=== PATIENT | female | born 1965 | race Two or more races ===

== ENCOUNTER 2018-04-20 02:55 | Emergency (ER) | payer SELFPAY ==
[~2018-04-20] VITALS: Ht 157.5 cm; Wt 59.0 kg
[2018-04-20] MEDS ORDERED: methylPREDNISolone SOD SUCC 125 MG/2 ML VL ONE (03:09)
[2018-04-20] MEDS ORDERED: TERBUTALINE SULFATE 1 MG/ML 1ML VIAL SC ONE ×2 (03:15→03:17)
[2018-04-20] MEDS ORDERED: ALBUTEROL SULF 2.5 MG/0.5ML(0.5%) NEB SOLN NEB ONE (03:15)
[2018-04-20] MEDS ORDERED: IPRATROPIUM BROM 0.5 MG/2.5ML INH SOL NEB ONE (03:15)
[2018-04-20] MEDS ORDERED: methylPREDNISolone SOD SUCC 125 MG/2 ML VL IV ONE (03:15)
[2018-04-20 03:25] LABS: Basophils # (auto) 0.1 uL; Basophils % (auto) 0.7 % (0.0-2.0); Eosinophils # (auto) 0.3 uL; Eosinophils % (auto) 2.9 % (0.0-7.0); Hematocrit 39.8 % (36.0-46.0); Hemoglobin 12.9 g/dL (12.2-16.2); Lymphocytes # (auto) 2.5 uL; Lymphocytes % (auto) 27.7 % (10.0-50.0); Mean Corpuscular Hgb Conc. 32.5 g/dL (32.0-36.0); Mean Corpuscular Volume 89.2 fL (80.0-100.0); Monocytes # (auto) 0.6 uL; Monocytes % (auto) 7.3 % (0.0-12.0); Neutrophils # (auto) 5.4 uL; Neutrophils % (auto) 61.4 % (37.0-80.0); Nucleated Red Blood Cells % 0.1 %; Platelet Count (auto) 266 10^3/uL (140-450); Red Blood Cells 4.46 10^6/uL (4.0-5.20); Red Cell Distribution Width 13.4 % (11.8-14.3); White Blood Cell 8.9 10^3/uL (4.4-10.8)
[2018-04-20 03:41] LABS: Alanine Aminotransferase 18 U/L (13-56); Albumin 3.9 g/dL (3.4-5.0); Anion Gap 8 (5-15); Aspartate Aminotransferase 15 U/L (15-37); BUN/Creatinine Ratio 33.9; Blood Urea Nitrogen 40 mg/dL (7-18); Calcium 8.4 mg/dL (8.5-10.1); Carbon Dioxide 24 mmol/L (21-32); Chloride 108 mmol/L (98-107); GFR African American 61 mL/min; GFR Non-African American 51 mL/min; Glucose 116 mg/dL (74-106); Magnesium 2.3 mg/dL (1.6-2.6); Potassium 3.6 mmol/L (3.5-5.1); Sodium 140 mmol/L (136-145)
[2018-04-20 03:45] LABS: Alkaline Phosphatase 67 U/L (45-117); Bilirubin, Total 0.2 mg/dL (0.2-1.0); Total Protein 8.3 g/dL (6.4-8.2)
[2018-04-20] MEDS ORDERED: SODIUM CHLORIDE 0.9% 1,000 ML IV ONE (04:15)
[2018-04-20 11:43] VITALS: BP 110/58
== END 2018-04-20 11:56 | disposition home or self-care (01) ==
LOC: ER 02:59
DX: I10 Essential (primary) hypertension (principal); R13.10 Dysphagia, unspecified; E11.21 Type 2 diabetes mellitus with diabetic nephropathy; E03.9 Hypothyroidism, unspecified; Z90.89 Acquired absence of other organs
CPT/HCPCS: 36415; 71045; 80053; 83036; 83735; 83880; 84443; 84484; 85025; 94640; 94761; 96372; 96374; 99285; J2930; J3105; J7611; J7644